=== PATIENT | female | born 1985 | race Hispanic/Latino ===

== ENCOUNTER 2018-01-29 16:34 | Day surgery (SDC) | payer OTHER ==
[2018-01-28 14:33] VITALS: BMI 29.9
[~2018-01-29 16:34] MED LIST: Dexamethasone 20 MG/5 ML VIAL ONE; Lidocaine 1% PF 5 ML VIAL ONE; Ondansetron HCl/PF 4 MG/2 ML Vial ONE; PROPOFOL 200 MG/20 ML VIAL ONE; Succinylcholine Chloride 20 MG/ML 10 ml SYRINGE FS ONE
[2018-01-29] MEDS ORDERED: Oxymetazoline HCl 0.05% ( 15 ML ) ONE (16:50)
[2018-01-29 17:18] LABS: BHCG - Serum Negative (NEGATIVE); Pregs Control Background? CLEAR/WHITE (CLR/WHITE); Pregs Control Bar Appear? YES (CONTROL BAR)
[2018-01-29] MEDS ORDERED: Midazolam HCl 2 mg/2 ml Vial ONE (17:51)
[2018-01-29] MEDS ORDERED: Fentanyl 100 MCG/2 ML VIAL ONE ×4 (17:51→19:33)
[2018-01-29] MEDS ORDERED: Ondansetron ODT 4 MG TAB ONE (20:20)
--- NOTE | 2018-01-29 20:38 | OP ---
PREOPERATIVE DIAGNOSES: Profound septal deformity, obstructive tonsillar hypertrophy, obstructive in ferior turbinate hypertrophy. POSTOPERATIVE DIAGNOSES: Profound septal deformity, obstructive tonsillar hypertrophy, obstructive i nferior turbinate hypertrophy. PROCEDURES PERFORMED: 1. Septoplasty. 2. Bilateral nasal endoscopy with submucosal resection of inferior turbinates. 3. Tonsillectomy over 12 years of age. PROCEDURE IN DETAIL: After consent was obtained, the patient was identified, brought to the operatin g room, and placed on the operating room table in the supine position. Consent was obtained, notifyi ng the patient of the possibility of additional infections, bleeding, brain injury, and eye/orbital i njury. The patient was placed on the operating room table, and general endotracheal anesthesia and intravenous access was obtained. The patient was then positioned, prepped and draped for endoscopic sinus surgery. Nasal preparation included trimming nasal vestibular hairs and spraying in topical Af rin. We then placed Afrin topical solution on nasal pledgets and strategically located them intranas ally. The perinasal mucosa was injected with 1% lidocaine with 1:100,000 epinephrine in the submucop erichondrial plane of the septum, lateral nasal wall, and anterior to the uncinate. The patient was then prepped and draped in a sterile fashion and positioned for endoscopic sinus surgery. Endoscopic Sinus Surgery: With the 0-degree endoscope, the patient underwent systematic nasal endosc opy. There were no suspicious internasal masses or lesions identified. We then focused our attentio n to the osteomeatal complex region under the middle turbinate. Outfracture of the Inferior Turbinates: The inferior turbinates were visualized under endoscopic vis ualization and outfractured with the elevator. The inferolateral edge of the inferior turbinate was then cauterized along its length with the suction cautery without difficulty. Outfracture & Cautery of the Inferior Turbinates: The inferior turbinates were visualized with a 0-d egree endoscope and outfractured with a Gustabo elevator. The inferior medial aspect was cauterized wi th the electrocautery. Hemostasis was obtained . After adequate airway was established, we turned o ur attention to the contralateral side and used a similar procedure. Again, a Gustabo elevator was use d to outfracture inferior turbinates under endoscopic visualization. With a suction cautery, the judah e inferior medial aspect was cauterized under direct visualization along the length of the inferior t urbinate. Septoplasty: After local anesthesia was infiltrated into the submucoperichondrial plane, a standard Marland incision was made with a #15 blade down to the level of the septal cartilage. The caudal sury vator was used to elevate the mucoperichondrium from the underlying cartilage. We then proceeded bey ond the bony cartilaginous junction and elevated the bony periosteum as well. Great attention was pa id to the spur to prevent rent formation in the septal flap. A transcartilaginous incision was then m ayesha, while preserving an adequate dorsal and caudal cartilaginous strut for tip support. The deforme d cartilage was removed and disarticulated from the bony cartilaginous junction and maxillary crest. This was placed in saline and would later be crushed and returned to the mucoperichondrial envelope. We then elevated the contralateral periosteum from the bony cartilaginous region and removed the de formed portions of the bone and bony spurs. The cartilage was then crushed and placed back into the mucoperichondrial envelope and the mucosa was re-approximated with a quilting stitch composed of rapi dly absorbent gut suture. The Marland incision was also closed with interrupted gut suture. At the completion of the case, Lee splints were placed and suture secured to the caudal septum. At the completion of the case, Rice keel splints were placed in the ethmoid cavities after the ethmoi dectomy. There were no complications. The patient tolerated the procedure well and was discharged t o the recovery room in stable condition prior to return to the preoperative Day Stay with [facility]. Prescriptions for pain medication and antibiotics were provided. The patient received intramuscular Depo-Medrol during the case. TITLE OF PROCEDURE: Tonsillectomy. PROCEDURE IN DETAIL: After consent was obtained, the patient was identified, brought to the operatin g room, and placed on the operating table in the supine position. General endotracheal anesthesia an d intravenous access was obtained and we proceeded with positioning the patient for oropharyngeal anastasia amber. Oropharyngeal exposure was obtained with a Ag-Sridhar mouth gag after a head drape was placed and secured with a towel clip. The Ag-Sridhar mouth gag was then suspended from the [place] tray and palatal elevation was achieved with a red rubber catheter. The right tonsil was addressed first. We used a curved Allis to grasp the tonsil and retract it medially as an anterior pillar incision was m ayesha with a #12 blade. The retrotonsillar fascial plane was then established and blunt dissection was performed with the suction cautery. Blood vessels were anticipated, identified, and cauterized as t hey were encountered. Ultimately, dissection was carried to the posterior tonsillar pillar mucosa wh ich was incised hemostatically, as well as the base of tongue connection. The tonsil was then passed off as a specimen and bleeding points within the tonsillar bed were cauter ized under direct visualization. We subsequently turned our attention to the contralateral side, whe re using a similar technique, a near identical procedure was performed. Again, the tonsil was graspe d and retracted medially with a curved Allis as an anterior pillar incision was made with a #12 blade . The retrotonsillar fascial plane was established and while the anterior pillar was retracted media lly, the hemostatic blunt dissection of the tonsil with a suction cautery was performed with blood ve ssels anticipated, identified, and cauterized as they were encountered. Again, dissection continued to the base of tongue and posterior tonsillar pillar mucosa which was incised in a hemostatic fashion . The tonsillar beds were then carefully inspected and bleeding points were identified and cauterize d with a suction cautery. After this portion of the procedure, hemostasis was completely obtained. The patient's oral cavity was copiously irrigated with iced saline and subsequently suctioned. We th en used the red rubber catheter to suction the gastric contents and the patient was subsequently arou sed, awakened, and extubated without difficulty and transported to the recovery room in stable condit ion. There were no complications.
== END 2018-01-29 21:23 | disposition home or self-care (01) ==
LOC: SDC 16:34
PROVIDERS: ATTEND Specialist
PROC: 09SM0ZZ Reposition Nasal Septum, Open Approach (ICD-10-PCS; principal; 2018-01-29)
PROC: 0CTPXZZ Resection of Tonsils, External Approach (ICD-10-PCS; principal; 2018-01-29)
PROC: 09SL8ZZ Reposition Nasal Turbinate, Via Natural or Artificial Opening Endoscopic (ICD-10-PCS; principal; 2018-01-29)
DX: J35.1 Hypertrophy of tonsils (principal); J34.2 Deviated nasal septum; J34.3 Hypertrophy of nasal turbinates; H35.53 Other dystrophies primarily involving the sensory retina; G89.29 Other chronic pain; M54.9 Dorsalgia, unspecified; K21.9 Gastro-esophageal reflux disease without esophagitis; G47.33 Obstructive sleep apnea (adult) (pediatric); H61.20 Impacted cerumen, unspecified ear; Z79.899 Other long term (current) drug therapy; Z88.5 Allergy status to narcotic agent
CPT/HCPCS: 36415; 84703; 85014; 88304; 96374; J1100; J2001; J2250; J2405; J2704; J3010; Q0162

== ENCOUNTER 2018-04-23 20:58 | Inpatient (IN) | payer OTHER ==
[2018-04-23 21:54] LABS: #Basophils 0.1 thou/uL (0.0-0.2); #Eosinphils 0.1 thou/uL (0.0-0.7); #Lymphocytes 1.2 thou/uL (1.20-3.40); #Monocytes 0.8 thou/uL (0.11-0.59); #Neutrophils 8.9 thou/uL (1.40-6.50); %Basophils 0.8 % (0.0-1.0); %Eosinophils 0.7 % (0.0-10.0); %Monocytes 6.8 % (0.0-10.0); %Neutrophils 80.7 % (42.0-75.0); Hemoglobin 14.2 g/dL (12.0-16.0); Mean Corpuscular Hemoglobin 28.9 pg (27.0-31.0); Mean Corpuscular Volume 87.5 fL (78.0-98.0); Mean Platelet Volume 9.1 fL (7.4-10.4); Platelet Count 285 thou/uL (130-400)
[2018-04-23 22:15] LABS: ALT (SGPT) 25 U/L (8-55); AST (SGOT) 17 U/L (5-34); Acetaminophen Less than 6.0 mcg/mL (10.0-30.0); Albumin 4.1 g/dL (3.5-5.0); Alcohol Less than 10 mg/dL (Less than 10); Alkaline Phosphatase 78 U/L (40-150); Anion Gap 16 mmol/L (10-20); BUN (Urea Nitrogen) 12 mg/dL (7.0-18.7); Bilirubin, Total 0.3 mg/dL (0.2-1.2); CK (CPK) 221 U/L (29-168); Calc. Creatinine Clearance 0 mL/min (70-130); Calcium 9.3 mg/dL (7.8-10.44); Carbon Dioxide 21 mmol/L (22-29); Chloride 103 mmol/L (98-107); Estimated GFR-MDRD 86; Globulin 3.3 g/dL (2.4-3.5); Glucose 124 mg/dL (70-105); Potassium 3.5 mmol/L (3.5-5.1); Protein, Total 7.4 g/dL (6.0-8.3); Salicylate Less than 8.0 mg/dL (15.0-30.0); Sodium 136 mmol/L (136-145)
[2018-04-23 23:18] LABS: Bilirubin Negative (Negative); Blood, Urine Negative (Negative); Clarity CLEAR (Clear); Glucose, Urine (Dipstick) Negative (Negative); Leukocyte Negative (Negative); Nitrite Negative (Negative); Protein, Urine (Dipstick) Negative (Neg-Trace); Specific Gravity, Urine 1.005 (1.002-1.036); Urobilinogen 0.2 mg/dL (0.2-1.0)
[2018-04-23 23:19] LABS: Pregnancy Test - Urine (BHCG) Negative (Negative); Pregu Control Background? CLEAR/WHITE (CLR/WHITE); Pregu Control Bar Appear? YES (CONTROL BAR); Specific Gravity 1.005 (1.002-1.036)
[2018-04-23 23:26] LABS: Medtox Reader # READER 1
[2018-04-23 23:27] LABS: Amphetamine Detected (NotDetected); Barbiturates Screen Not Detected (NotDetected); Benzodiazepine Screen Not Detected (NotDetected); Cocaine Metabolite Screen Not Detected (NotDetected); Medtox Control Line Valid? VALID (VALID); Methadone Not Detected (NotDetected); Methamphetamine Detected (NotDetected); Opiate Screen Not Detected (NotDetected); Oxycodone Screen Not Detected (NotDetected); Phencyclidine (PCP) Not Detected (NotDetected); THC/Cannabinoid Screen Not Detected (NotDetected); Tricyclic Screen Not Detected (NotDetected)
--- NOTE | 2018-04-23 23:32 | CT ---
CT BRAIN 04/23/18 PROVIDED CLINICAL HISTORY: Seizure. FINDINGS: Comparison 12/05/13. The ventricular system is nondilated. There is a right frontal subdural hematoma. There is associated 3 mm of right to left midline shift. Subdural hematoma may also be present along the right tentorium and extending along the medial margin of the right occipital region. The basilar cisterns appear pat ent. The extracranial soft tissues and osseous structures appear unremarkable. IMPRESSION: Findings compatible with right frontal subdural hematoma and associated 3 mm of right to left midline shift. Subdural hematoma may also be present along the right tentorium and extending along the media l aspect of the right occipital lobe. Findings regarding the presence of subdural hematoma communicated to Basil Bonilla 11:23 p.m., . Code CR POS: KALEN
[2018-04-23] MEDS ORDERED: Fosphenytoin Sodium 1,500 MG in Sodium Chloride 0.9% 100 ML IVPB SCH (23:59)
[2018-04-24] MEDS ORDERED: Bisacodyl 10 MG SUPP PR PRN (02:01)
[2018-04-24] MEDS ORDERED: diphenhydrAMINE 50 MG CAP PO PRN (02:01)
[2018-04-24] MEDS ORDERED: Acetaminophen 325 MG TAB PO PRN (02:01)
[2018-04-24] MEDS ORDERED: Docusate 100 MG CAP PO PRN (02:01)
[2018-04-24] MEDS ORDERED: Promethazine 25 MG TAB PO PRN (02:01)
[2018-04-24] MEDS ORDERED: Ondansetron PF 4 MG/2 ML Vial IVP PRN (02:01)
[2018-04-24] MEDS ORDERED: Promethazine HCl 25 MG/ML VIAL IM PRN (02:01)
[2018-04-24] MEDS ORDERED: Milk Of Magnesia 30 ML UDCUP PO PRN (02:01)
[2018-04-24] MEDS ORDERED: Labetalol HCl 100 MG/20 ML VIAL SLOW IVP PRN (02:01)
[2018-04-24] MEDS ORDERED: diphenhydrAMINE 50 MG/ML VIAL IVP PRN (02:01)
[2018-04-24] MEDS ORDERED: Mag-Al 1200 mg/1200 mg/30 ML UDCUP PO PRN (02:01)
[2018-04-24] MEDS ORDERED: hydrALAZINE 20 MG/ML VIAL SLOW IVP PRN (02:01)
[2018-04-24] MEDS ORDERED: Meperidine HCl/PF 25 MG/ML VIAL SLOW IVP PRN (02:07)
[2018-04-24] MEDS ORDERED: traMADol HCl 50 MG TAB PO PRN (02:11)
[2018-04-24 02:34] VITALS: BMI 27.0
--- NOTE | 2018-04-24 03:01 | HP ---
HISTORY OF PRESENT ILLNESS: Ms. Gaspar is a 32-year-old female, who was brought to the emergency department today for new onset of seizures. The patient states that she was following talking her children in her bed this evening, her left hand went numb, which resolved in a minute or two; however, she was on the phone talking with her parents and she started to repeat the word I and then was unable to get any words out. She then started to collapse and her caught her and the patient lost consciousness. Her helped her to the ground and he thought that she was not breathing and started CPR. and parents state that she had convulsions as well as some rigidity and when the parents got to her, she was in a catatonic state, staring at the ceiling. The patient came to the emergency department where we learned that she had had a migraine yesterday, she has a history of migraines with auras though one yesterday, she took some Excedrin migraine and there was much improvement. She still had a headache today and took more Excedrin this morning. 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 The patient also has history of depression and occasional suicidal ideations. The patient stated she had some this morning. CURRENT MEDICATIONS: Clonazepam. ALLERGIES: MORPHINE. PAST MEDICAL HISTORY: 1. Usher syndrome. 2. Hard of hearing, wears hearing aids. 3. Tunnel vision. 4. Migraines with auras. PAST SURGICAL HISTORY: 1. Tonsillectomy. 2. Appendectomy. 3. section x1. PSYCHIATRIC HISTORY: 1. Anxiety. 2. Depression. 3. Panic attacks. 4. Depression with suicidal ideations. SOCIAL HISTORY: The patient drinks socially rarely. The patient is a former drug user, abuse marijuana, quit more than 10 years ago. The patient denies nicotine. REVIEW OF SYSTEMS: Denies any fever or chills. Mild headache. Denies eye pain or sensitivity to light. 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 Wears hearing aids to assist with hearing. Denies any chest pain, palpitations, or shortness of breath. Denies cough. Denies any abdominal pain, nausea, or vomiting. No diarrhea or constipation. No urinary dysfunction or frequency. No musculoskeletal pain. Denies falls. Reports headache. Reports seizure. Reports anxiety and depression. PHYSICAL EXAMINATION: VITAL SIGNS: Blood pressure 137/106, heart rate 90, respirations 18, temperature 99.1, O2 saturations 99% on room air. CONSTITUTIONAL: The patient is afebrile and normotensive. HEENT: Head is normocephalic and atraumatic. Pupils are equal, round, and reactive to light. Extraocular movements are intact. Vision is at baseline. Right pupil reaction is sluggish. Hearing is intact with the use of hearing aids. Moist mucous membranes. RESPIRATIONS: Normal work of breathing on room air. Symmetrical chest rise. CARDIOVASCULAR: Regular rate and rhythm. EXTREMITIES: Upper and lower extremities, normal range of motion. Normal strength. Normal sensation. A 5/5 bilateral and dynamite cartridge crimper strength, deltoids, biceps, triceps , hip flexion, knee flexion, dorsiflexion, and plantar flexion. NEUROLOGIC: The patient is oriented to person, place, and time. Speech is normal. Cranial nerves are intact. Vision is at baseline due to Usher syndrome. She has declining vision since she was 11. She has no motor or sensory deficits noted. There is no pronator drift. IMAGING STUDIES: CT of the brain shows right frontal subdural hematoma. There is associated 3 mm of hkhci-le-ulop midline shift. There is possible extension of the subdural hematoma into the right tentorium along the medial margin of the right occiput. ASSESSMENT AND PLAN: Ms. Gaspar has subdural hematoma on the right and new onset seizures. Given that she has no history of trauma, there is some concern as to how she would get the subdural. The patient is not on any blood thinners and does not have hypertension. We are obtaining CT angiogram to assess the vessels of the brain. We will admit her overnight. We will get neuro checks every 2 hours. We will keep her blood pressure in normal range below 115 systolic. We will consult Neurology for seizures and keep comfortable. Job ID: [id number] [facility]
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
[2018-04-24] MEDS: Famotidine 20 MG TAB PO SCH ×2 (08:53→20:35)
--- NOTE | 2018-04-24 08:55 | CT ---
PRELIMINARY REPORT/[facility]/EMERGENTY AFTER-HOURS PROCEDURE Addendum created by Stormy Grace MD on 04/24/2018 1:12 AM Central Time ([place] & [place]) THIS REPORT CONTAINS FINDINGS THAT MAY BE CRITICAL TO PATIENT CARE. The findings were verbally commun icated via telephone conference with LUIS EDUARDO James at 1:12 AM [facility]S CONSULTANT on 04/24/2018. The findings were acknowledged and understood. Initial Report created on 04/24/2018 1:09 AM Central Time ([place] & [place]) CT Angiography Head With Contrast EXAM DATE/TIME: 04/24/2018 12:40 AM CLINICAL HISTORY: 32 years old, female; Signs and symptoms; Convulsions / seizures; Type not specified; Patient HX: 32f brought in by ems for C/O seizure activity. Patient reportedly was speaking with her and bec harshil anxious and "locked up" and couldn't move or talk, then had a loc. Spouse caught her, and perform ed [id number] and reports convulsive activity. Parents arrived a few minutes later and reports sh e was catatonic, staring upward and nonverbal. A&o x3 by ems arrival. Reports right temoral migraine yesterday, which improved w/excedrin and mild frontal and posterior headache today. Also reports depression and occasional suicidal ideations r/t hearing and vision loss associat ed w/usher's syndrome. TECHNIQUE: Axial computed tomographic angiography images of the head with intravenous contrast using CT angiogra phy protocol. MIP reconstructed images were created and reviewed. COMPARISON: CT Brain WO Con 04/23/2018 11:16 PM FINDINGS: Right internal carotid artery: Unremarkable. Intracranial segment is patent with no significant steno sis. No aneurysm. Right anterior cerebral artery: Unremarkable. No occlusion or significant stenosis. No aneurysm. Right middle cerebral artery: Unremarkable. No occlusion or significant stenosis. No aneurysm. Right posterior cerebral artery: Unremarkable. No occlusion or significant stenosis. No aneurysm. Right vertebral artery: Unremarkable. No occlusion or significant stenosis. No aneurysm. Left internal carotid artery: Unremarkable. Intracranial segment is patent with no significant stenos is. No aneurysm. Left anterior cerebral artery: Unremarkable. No occlusion or significant stenosis. No aneurysm. Left middle cerebral artery: Unremarkable. No occlusion or significant stenosis. No aneurysm. Left posterior cerebral artery: Unremarkable. No occlusion or significant stenosis. No aneurysm. Left vertebral artery: Unremarkable. No occlusion or significant stenosis. No aneurysm. Basilar artery: Unremarkable. No occlusion or significant stenosis. No aneurysm. HEAD: Brain: Mild- moderate 7-8 mm right frontoparietal subdural hematoma. IMPRESSION: Mild- moderate 7-8 mm right frontoparietal subdural hematoma. No midline shift. Patent CTA Head- No occlusion or significant stenosis. No aneurysm. Thank you for allowing us to participate in the care of your patient. Dictated and Authenticated by: Stormy Grace MD 04/24/2018 1:09 AM Central Time ([place] & [place]) FINAL REPORT CTA BRAIN WITH IV CONTRAST AND 3D POSTPROCESSING CTA NECK WITH IV CONTRAST AND 3D POSTPROCESSING: Date: 04/23/18 FINDINGS/IMPRESSION: I agree with the preliminary report given by Cici. POS: OFF
--- NOTE | 2018-04-24 08:57 | CT ---
PRELIMINARY REPORT/[facility]/EMERGENTY AFTER-HOURS PROCEDURE CT Head Without Contrast EXAM DATE/TIME: 04/24/2018 4:45 AM CLINICAL HISTORY: 32 years old, female; Signs and symptoms and condition or disease; Other: Sdh; Dizziness; Patient HX: S/P stroke protochol last am. Exams on vrad +5 hrs TECHNIQUE: Axial computed tomography images of the head/brain without contrast. COMPARISON: CT Brain WO Con 04/23/2018 11:16 PM FINDINGS: Brain: Redemonstrated is a RIGHT frontal convexity subdural hemorrhage measuring 8 mm in thickness, w ith mild mass effect on the underlying brain similar to prior. There is probably hemorrhage layering over the RIGHT tentorium as well. Ventricles: Normal. No ventriculomegaly. Bones/joints: Normal. No acute fracture. Sinuses: Normal as visualized. No acute sinusitis. Mastoid air cells: Normal as visualized. No mastoid effusion. Soft tissues: Normal. IMPRESSION: Stable RIGHT frontal subdural hemorrhage with subtle layering along the RIGHT tentorium, not signific antly changed from prior. Thank you for allowing us to participate in the care of your patient. Dictated and Authenticated by: Alex Nguyen MD 04/24/2018 5:30 AM Central Time ([place] & [place]) FINAL REPORT CT BRAIN WITHOUT CONTRAST: I agree with the preliminary report given by Dr. Alex Nguyen of [facility]. POS: OFF
--- NOTE | 2018-04-24 10:51 | CON ---
DATE OF CONSULTATION: She is a 32-year-old female in the ICU. REASON FOR CONSULTATION: She presented with some unknown seizure-like activity. Family members noticed she lives with her and several kids that she was having jerky movements. Stayed upstairs nonverbal. In the ER, CAT scan showed a right-sided subdural. Neurosurgery has admitted. She is in the ICU. Her past medical history is pertinent for legally blind and cannot hear, she has Usher syndrome. Never had seizures before. She has seen Dr. Bhatt in office for sleep apnea. She has had recent tonsils and sinus surgery and has not been using CPAP machine ever since then. PAST SURGICAL HISTORY: Past surgeries otherwise include tonsils, appendix, and . PAST MEDICAL HISTORY: Migraine headaches, decreased hearing, decreased vision, and sleep apnea. SOCIAL HISTORY: Tobacco, quit 10 years ago. MEDICATIONS: Medicine from home includes clonazepam. ALLERGIES: MORPHINE. REVIEW OF SYSTEMS: Otherwise unobtainable. Mom and dad are in the room. PHYSICAL EXAMINATION: VITAL SIGNS: Sats 96% on room air, blood pressure 120/85, respiratory rate 19, and pulse 80. GENERAL: She is awake, alert, and responsive. CHEST: No wheezing or crackles. CARDIAC: Normal S1 and S2. No gallops. ABDOMEN: Soft. NEUROLOGIC: She is awake, alert, and responsive. Moves all 4 extremities. LABORATORY DATA: White count normal. Lytes are normal. She had a drug screen that is positive for amphetamines and methamphetamines. IMPRESSION: 1. Status post new onset seizure activity. 2. Polysubstance drug abuse. 3. Right frontal subdural hematoma. Input from Neurosurgery awaiting. Pulmonary will follow while in the ICU. Continue seizure medication. Supportive care. Consultation note, 70 minutes, 50% direct patient care. Job ID: [id number]
[2018-04-24] MEDS ORDERED: PROPOFOL 200 MG/20 ML VIAL ONE (15:50)
[2018-04-24] MEDS ORDERED: Lidocaine 1% PF 5 ML VIAL ONE (15:50)
[2018-04-24] MEDS ORDERED: Ondansetron PF 4 MG/2 ML Vial ONE (15:50)
[2018-04-24] MEDS ORDERED: Dexamethasone 20 MG/5 ML VIAL ONE (15:50)
[2018-04-24] MEDS: traMADol HCl 50 MG TAB PO PRN (17:13)
[2018-04-24] MEDS: levETIRAcetam 500 MG TAB PO SCH (20:35)
--- NOTE | 2018-04-25 00:17 | CON ---
DATE OF CONSULTATION: 04/24/2018 TYPE OF CONSULTATION: Neurology CONSULTING PHYSICIAN: Aliyah Soler MD IMPRESSION: 1. New onset of seizure secondary to subdural hematoma. 2. Unexplained subdural hematoma on the right. PLAN: Keppra 500 mg twice a day. MRI is pending. HISTORY OF PRESENT ILLNESS: Ms. Gaspar is a 32-year-old female, who reports that she was feeling relatively well other than having a low-grade headache before she collapsed, she had some transient numbness in her arm and then lost consciousness. She apparently was in an unresponsive state for an indeterminate period of time. She was brought to the hospital for evaluation. Her CT scan of the brain showed evidence of a right subdural hematoma. She reports that she did not suffer any significant trauma. She took a friend's Adderall prior to this. She otherwise has not had any further seizure activity since admission. PAST MEDICAL HISTORY: Usher syndrome with subsequent vision loss. ALLERGIES: NONE. SOCIAL HISTORY: She denies illicit drug use. FAMILY HISTORY: Noncontributory. MEDICATION LIST: None. REVIEW OF SYSTEMS: No complaints of lateralized weakness or numbness. PHYSICAL EXAMINATION: VITAL SIGNS: Blood pressure 112/88, pulse 86, respirations 16. HEENT: Pupils are equal. Conjunctivae are clear. Oropharynx is clear. NECK: Supple. EXTREMITIES: No cyanosis, clubbing, or edema. NEUROLOGIC: She is alert and appropriate. Her speech is fluent and clear. Cranial nerves 2 through 12 are intact. Motor strength was symmetric and without deficit. Sensation is intact to light touch. Rapid alternating movements are symmetric without any dysmetria. Gait was not tested. No abnormal movements were seen. DIAGNOSTIC DATA: EKG, normal sinus rhythm. SUMMARY: This is a young woman with unexplained subdural hematoma with a secondary seizure. I have started Keppra and will be available if there are any further problems with management of this. Job ID: [id number]
[2018-04-25] MEDS: levETIRAcetam 500 MG TAB PO SCH ×2 (08:39→21:11)
[2018-04-25] MEDS: Famotidine 20 MG TAB PO SCH ×2 (08:39→21:11)
[2018-04-25] MEDS ORDERED: Meperidine HCl/PF 25 MG/ML VIAL ONE (09:05)
[2018-04-25] MEDS ORDERED: Midazolam HCl 2 mg/2 ml Vial ONE (09:51)
[2018-04-25] MEDS ORDERED: Fentanyl 100 MCG/2 ML VIAL ONE (09:51)
--- NOTE | 2018-04-25 10:43 | PRG ---
DATE OF SERVICE: 04/25/2018 SUBJECTIVE: She went for MRI with anesthesia, because she is claustrophobic. OBJECTIVE: VITAL SIGNS: Temperature 99.4, blood pressure 106/75, respirations 13, saturations are . GENERAL: No distress. CHEST: Decreased breath sounds. No wheezing. CARDIAC: Normal S1 and S2. No gallops. ABDOMEN: No masses. IMPRESSION: 1. Subdural, etiology unclear. 2. Seizure disorder. PLAN: Continue present treatment. She can probably be transferred out of the ICU as per Neurosurgery . Job ID: [id number]
[2018-04-25] MEDS ORDERED: Ondansetron HCl/PF 4 MG/2 ML Vial IVP PRN (10:48)
[2018-04-25] MEDS ORDERED: HYDROmorphone 2 MG/ML VIAL SLOW IVP PRN (10:48)
[2018-04-25] MEDS ORDERED: Promethazine HCl 25 MG/ML VIAL IM PRN (10:48)
[2018-04-25] MEDS ORDERED: Promethazine HCl 25 MG/ML VIAL SLOW IVP PRN (10:48)
--- NOTE | 2018-04-25 11:34 | MRI ---
BRAIN MRI WITH AND WITHOUT CONTRAST: Date: 04/25/18 COMPARISON: None. HISTORY: Reevaluate subdural hemorrhage. TECHNIQUE: Multiplanar, multisequence MR imaging of the brain is obtained with and without contrast. FINDINGS: The diffusion-weighted imaging demonstrates no evidence for acute infarction. There is a subdural fluid collection with components in the right temporal, frontal, occipital, and p arietal regions. The FLAIR and T1-weighted imaging demonstrates this right subdural fluid collection to be hyperintense. It is also primarily hyperintense on the T2-weighted imaging with a linear area o f decreased T2 signal along its medial margin. There is restricted diffusion associated with this flu id collection, particularly in the right frontal region. The gradient echo imaging demonstrates bravo ing artifact associated with this suggesting that this represents blood products. It measures up to 3 .0 mm in AP dimension within the right posterior fossa and measures up to 8.0 mm in transverse dimens ion in the right frontal region. There is right to left midline shift, which is minimal, measuring in the 2-3 mm range. No hemorrhage is noted on the left. Imaged paranasal sinuses/mastoid air cells are grossly unremarkable. Arterial flow-voids at axial lev el of skull base appear grossly unremarkable on the T2-weighted imaging. The postcontrast imaging demonstrates mild leptomeningeal enhancement in the frontal region, likely r eactive in nature on the right. No discrete intra-axial enhancement noted. IMPRESSION: Subdural fluid collection on the right with components within the supratentorial region and the poste rior fossa. The signal characteristics are most consistent with subdural hemorrhage. Empyema cannot b e completely excluded in the proper clinical setting given restricted diffusion, but restricted diffu susannah can certainly be seen on the basis of hemorrhage. Follow-up advised. Case discussed with Dr. Roderick Mcmanus at approximately 1110 hours on 04/25/18. CODE CR. POS: [facility]
[2018-04-25] MEDS: traMADol HCl 50 MG TAB PO PRN (16:20)
[2018-04-26] MEDS: levETIRAcetam 500 MG TAB PO SCH (09:29)
[2018-04-26] MEDS: Famotidine 20 MG TAB PO SCH (09:29)
[2018-04-26] MEDS: traMADol HCl 50 MG TAB PO PRN ×2 (09:29→15:19)
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
[2018-04-26 16:27] VITALS: BP 106/72; TEMP 97.6
== END 2018-04-26 19:00 | disposition home or self-care (01) | DRG 100 ==
LOC: ERS 20:58 → CCU 04-24 01:20 → SURG A 04-25 15:51
PROVIDERS: ADMIT Neurological Surgery; ATTEND Neurological Surgery
DX: G40.909 Epilepsy, unspecified, not intractable, without status epilepticus (principal); I62.02 Nontraumatic subacute subdural hemorrhage; L10.4 Pemphigus erythematosus; H91.93 Unspecified hearing loss, bilateral; H53.489 Generalized contraction of visual field, unspecified eye; F41.9 Anxiety disorder, unspecified; F32.9 Major depressive disorder, single episode, unspecified; Z79.899 Other long term (current) drug therapy
CPT/HCPCS: 36415; 70450; 70496; 70553; 80053; 80306; 80307; 81003; 81025; 82550; 85025; 93005; 96361; 96365; J1100; J1200; J2001; J2175; J2250; J2405; J2704; J3010; J7050; Q2009

== ENCOUNTER 2018-05-27 10:57 | Outpatient (CLI) | payer OTHER ==
--- NOTE | 2018-05-27 13:40 | CT ---
CT HEAD WITHOUT CONTRAST: Date: 05/27/18 Multiple axial tomograms obtained through the head without IV enhancement. INDICATION: Follow-up subdural hematoma. Seizures given as reason for exam also. Comparison made to CT head dated 04/24/18. That exam revealed a right convexity subdural hematoma. FINDINGS: Ventricles have normal size and position. No mass or edema seen. No hemorrhage identified. No evidenc e of subdural hematoma identified today. IMPRESSION: Unremarkable CT head. The right subdural hematoma noted on the prior exam has resolved. POS: [facility]
== END 2018-05-27 10:58 | disposition home or self-care (01) ==
LOC: BICCT 10:57
PROVIDERS: ATTEND Neurological Surgery
DX: R56.9 Unspecified convulsions (principal); I62.00 Nontraumatic subdural hemorrhage, unspecified
CPT/HCPCS: 70450

== ENCOUNTER 2018-12-18 17:37 | Emergency (ER) | payer OTHER ==
[2018-12-18] MEDS ORDERED: Ketorolac Tromethamine 30 MG/ML VIAL ONE (18:58)
[2018-12-18 19:01] LABS: BHCG - Serum Negative (NEGATIVE); Pregs Control Background? CLEAR/WHITE (CLR/WHITE); Pregs Control Bar Appear? YES (CONTROL BAR)
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
== END 2018-12-18 20:13 | disposition home or self-care (01) ==
LOC: ERS 17:37
DX: S80.12XA Contusion of left lower leg, initial encounter (principal); S80.11XA Contusion of right lower leg, initial encounter; S40.022A Contusion of left upper arm, initial encounter; S40.021A Contusion of right upper arm, initial encounter; S30.0XXA Contusion of lower back and pelvis, initial encounter; G43.909 Migraine, unspecified, not intractable, without status migrainosus; F41.9 Anxiety disorder, unspecified; F32.9 Major depressive disorder, single episode, unspecified; Y04.8XXA Assault by other bodily force, initial encounter
CPT/HCPCS: 36415; 70450; 71045; 72125; 84703; 96372; J1885

== ENCOUNTER 2019-05-17 16:55 | Emergency (ER) | payer OTHER ==
[2019-05-17] MEDS ORDERED: Ketorolac Tromethamine 30 MG/ML VIAL ONE (18:34)
--- NOTE | 2019-05-17 19:37 | ULT ---
RIGHT LOWER EXTREMITY VENOUS DOPPLER: History: Pain. Comparison: None. Technique: Grayscale, color flow, doppler imaging, and spectral waveform analysis was performed of th e right lower extremity venous system. FINDINGS: There is compressibility, presence of flow and augmentation in the common femoral vein, femoral vein and popliteal vein. Flow in the greater saphenous vein, profunda femoral vein and posterior tibial ve in. IMPRESSION: No evidence of thrombus in the right lower extremity deep venous system. POS: [facility]
== END 2019-05-17 19:04 | disposition home or self-care (01) ==
LOC: ERS 16:55
DX: M54.41 Lumbago with sciatica, right side (principal); F41.0 Panic disorder [episodic paroxysmal anxiety]; F32.9 Major depressive disorder, single episode, unspecified; Z87.891 Personal history of nicotine dependence; Z79.899 Other long term (current) drug therapy
CPT/HCPCS: 96372; J1885

== ENCOUNTER 2019-05-24 10:48 | Outpatient (CLI) | payer OTHER ==
--- NOTE | 2019-05-24 11:10 | RAD ---
2 views lumbar spine: 05/24/2019 COMPARISON: None HISTORY: Back pain with right lower extremity radiculopathy FINDINGS: Lumbar pedicles are intact on frontal imaging. Lateral imaging demonstrates normal vertebra l body height and alignment. No acute osseous abnormality. IMPRESSION: No acute findings.
== END 2019-05-24 10:49 | disposition home or self-care (01) ==
LOC: BICRAD 10:48
PROVIDERS: ATTEND Family Medicine
DX: M54.9 Dorsalgia, unspecified (principal)
CPT/HCPCS: 72100

== ENCOUNTER 2019-09-21 18:48 | Emergency (ER) | payer OTHER ==
[2019-09-21 19:28] LABS: #Basophils 0.1 thou/uL (0.0-0.2); #Eosinphils 0.1 thou/uL (0.0-0.7); #Lymphocytes 1.8 thou/uL (1.20-3.40); #Monocytes 0.7 thou/uL (0.11-0.59); #Neutrophils 9.4 thou/uL (1.40-6.50); %Basophils 0.5 % (0.0-1.0); %Eosinophils 0.7 % (0.0-10.0); %Lymphocytes 15.3 % (21.0-51.0); %Monocytes 5.8 % (0.0-10.0); %Neutrophils 77.6 % (42.0-75.0); Hemoglobin 14.1 g/dL (12.0-16.0); Mean Corpuscular HGB CONC 32.4 g/dL (32.0-36.0); Mean Corpuscular Hemoglobin 28.7 pg (27.0-31.0); Mean Corpuscular Volume 88.5 fL (78.0-98.0); Mean Platelet Volume 9.3 fL (7.4-10.4); Platelet Count 265 thou/uL (130-400); RBC Distribution Width 11.9 % (11.5-14.5); Red Blood Cell (RBC) Count 4.91 mill/uL (4.20-5.40); White Blood Cell (WBC) Count 12.1 thou/uL (4.8-10.8)
[2019-09-21 19:49] LABS: ALT (SGPT) 30 U/L (8-55); AST (SGOT) 16 U/L (5-34); Acetaminophen Less than 6.0 mcg/mL (10.0-30.0); Albumin 4.3 g/dL (3.5-5.0); Alcohol Less than 10 mg/dL (Less than 10); Alkaline Phosphatase 83 U/L (40-110); Anion Gap 15 mmol/L (10-20); BUN (Urea Nitrogen) 12 mg/dL (7.0-18.7); Bilirubin, Total 0.2 mg/dL (0.2-1.2); Calc. Creatinine Clearance 0 mL/min (70-130); Calcium 9.7 mg/dL (7.8-10.44); Carbon Dioxide 24 mmol/L (22-29); Chloride 103 mmol/L (98-107); Estimated GFR-MDRD 76; Globulin 3.2 g/dL (2.4-3.5); Glucose 103 mg/dL (70-105); Potassium 4.1 mmol/L (3.5-5.1); Protein, Total 7.5 g/dL (6.0-8.3); Salicylate Less than 8.0 mg/dL (15.0-30.0); Sodium 138 mmol/L (136-145)
[2019-09-21 20:15] LABS: BHCG - Serum Negative (NEGATIVE); Pregs Control Background? CLEAR/WHITE (CLR/WHITE); Pregs Control Bar Appear? YES (CONTROL BAR)
[2019-09-21 20:52] LABS: Bilirubin Negative (Negative); Blood, Urine Negative (Negative); Clarity Clear (Clear); Glucose, Urine (Dipstick) Normal (Negative); Leukocyte Negative Leu/uL (Negative); Nitrite Negative (Negative); Protein, Urine (Dipstick) Negative (Neg-Trace); Urobilinogen Normal mg/dL (Less than 2)
[2019-09-21 21:02] LABS: Amphetamine Not Detected (NotDetected); Barbiturates Screen Not Detected (NotDetected); Benzodiazepine Screen Not Detected (NotDetected); Cocaine Metabolite Screen Not Detected (NotDetected); Medtox Control Line Valid? VALID (VALID); Medtox Reader # READER 4; Methadone Not Detected (NotDetected); Methamphetamine Not Detected (NotDetected); Opiate Screen Not Detected (NotDetected); Oxycodone Screen Not Detected (NotDetected); Phencyclidine (PCP) Not Detected (NotDetected); THC/Cannabinoid Screen Not Detected (NotDetected); Tricyclic Screen Detected (NotDetected)
--- NOTE | 2019-09-22 16:10 | EKG ---
Test Reason : OD Blood Pressure : / mmHG Vent. Rate : 115 BPM Atrial Rate : 115 BPM P-R Int : 130 ms QRS Dur : 086 ms QT Int : 344 ms P-R-T Axes : 050 020 022 degrees QTc Int : 475 ms Sinus tachycardia Otherwise normal ECG Confirmed by CARIDAD REA DO ([id number]), editorial intern AHSAN THOMAS ([id number]) on 09/22/2019 4:09:18 PM Referred By: Confirmed By:CARIDAD REA DO
== END 2019-09-22 11:26 ==
LOC: MERGE 18:48 → ERS 18:48
DX: T42.6X2A Poisoning by other antiepileptic and sedative-hypnotic drugs, intentional self-harm, initial encounter (principal); T43.222A Poisoning by selective serotonin reuptake inhibitors, intentional self-harm, initial encounter; T48.1X2A Poisoning by skeletal muscle relaxants [neuromuscular blocking agents], intentional self-harm, initial encounter; F32.9 Major depressive disorder, single episode, unspecified; F41.9 Anxiety disorder, unspecified
CPT/HCPCS: 36415; 80053; 80306; 80307; 81003; 84703; 85025; 93005

== ENCOUNTER 2021-05-08 08:34 | Outpatient (CLI) | payer MEDICARE, MEDICAID | END 2021-05-08 08:35 | disposition home or self-care (01) | LOC: BICMAMMO 08:34 | PROVIDERS: ATTEND Student in an Organized Health Care Education/Training Program | DX: N63.20 Unspecified lump in the left breast, unspecified quadrant (principal) | CPT/HCPCS: 77066; G0279 ==

== ENCOUNTER 2023-11-19 15:14 | Outpatient (CLI) | payer OTHER | END 2023-11-19 15:15 | disposition home or self-care (01) | LOC: BICMAMMO 15:14 | PROVIDERS: ATTEND Family Medicine | DX: Z12.31 Encounter for screening mammogram for malignant neoplasm of breast (principal) | CPT/HCPCS: 77063; 77067 ==